=== PATIENT | female | born 1975 | race Hispanic/Latino ===

== ENCOUNTER → 2020-07-10 | Outpatient (CLI) | payer OTHER ==
[~2020-07-10] MED LIST: LOSARTAN POTAS100 MG PO
[2020-07-10 10:39] LABS: BASOPHILS # (AUTO) 0.1 (0.0-0.1); BASOPHILS % 1.1 % (0.0-1.0); EOSINOPHILS # (AUTO) 0.1 (0.0-0.4); EOSINOPHILS % 1.6 % (0.0-6.0); HEMATOCRIT 38.3 % (34.2-44.1); HEMOGLOBIN 12.5 g/dL (12.0-16.0); LYMPHOCYTES # (AUTO) 1.6 (1.0-3.2); LYMPHOCYTES % 29.1 % (18.0-39.1); MEAN CORPUSCULAR HEMOGLOBIN 28.4 pg (28-32); MEAN CORPUSCULAR HGB CONC 32.6 g/dL (31-35); MONOCYTES # (AUTO) 0.4 (0.2-0.8); MONOCYTES % 6.9 % (4.4-11.3); NEUTROPHILS # (AUTO) 3.4 (2.1-6.9); NEUTROPHILS % 60.9 % (38.7-80.0); PLATELET COUNT 210 x10e3/uL (140-360); RED CELL DISTRIBUTION WIDTH 13.3 % (11.7-14.4)
[2020-07-10 11:16] LABS: ALANINE AMINOTRANSFERASE 27 IU/L (0-55); ALBUMIN 3.7 g/dL (3.5-5.0); ALBUMIN/GLOBULIN RATIO 1.2 (0.8-2.0); ALKALINE PHOSPHATASE 96 IU/L (40-150); ANION GAP 13.5 mmol/L (8-16); BLOOD UREA NITROGEN 5 mg/dL (7-26); BUN/CREATININE RATIO 8 (6-25); CALCIUM 8.6 mg/dL (8.4-10.2); CARBON DIOXIDE 24 mmol/L (22-29); CHLORIDE 108 mmol/L (98-107); CREATININE, SERUM 0.63 mg/dL (0.57-1.11); EST GLOMERULAR FILTRATION RATE > 60 ML/MIN (60-); GLUCOSE 96 mg/dL (74-118); POTASSIUM 3.5 mmol/L (3.5-5.1); SODIUM 142 mmol/L (136-145)
== END | disposition home or self-care (01) ==
LOC: RAD 05:00 → OR 07-15 07:59 → EDSTATUS 07-15 10:00
PROVIDERS: ATTEND Obstetrics & Gynecology
DX: N92.0 Excessive and frequent menstruation with regular cycle (principal); Z01.810 Encounter for preprocedural cardiovascular examination; Z01.812 Encounter for preprocedural laboratory examination; Z11.59 Encounter for screening for other viral diseases; Z53.9 Procedure and treatment not carried out, unspecified reason
CPT/HCPCS: 36415; 80053; 84702; 85025; 86850; 86900; 93005; U0002

== ENCOUNTER 2020-08-19 10:52 | Observation (INO) | payer OTHER ==
[2020-08-14 11:04] LABS: BASOPHILS % 0.6 % (0.0-1.0); EOSINOPHILS # (AUTO) 0.1 (0.0-0.4); EOSINOPHILS % 0.9 % (0.0-6.0); HEMATOCRIT 41.1 % (34.2-44.1); HEMOGLOBIN 13.6 g/dL (12.0-16.0); LYMPHOCYTES # (AUTO) 1.9 (1.0-3.2); LYMPHOCYTES % 27.9 % (18.0-39.1); MEAN CORPUSCULAR HEMOGLOBIN 28.5 pg (28-32); MEAN CORPUSCULAR HGB CONC 33.1 g/dL (31-35); MEAN CORPUSCULAR VOLUME 86.2 fL (81-99); MONOCYTES # (AUTO) 0.6 (0.2-0.8); NEUTROPHILS # (AUTO) 4.3 (2.1-6.9); NEUTROPHILS % 62.3 % (38.7-80.0); PLATELET COUNT 218 x10e3/uL (140-360); RED BLOOD COUNT 4.77 x10e6/uL (3.6-5.1); RED CELL DISTRIBUTION WIDTH 12.6 % (11.7-14.4)
[2020-08-14 11:21] LABS: ALANINE AMINOTRANSFERASE 17 IU/L (0-55); ALBUMIN 4.3 g/dL (3.5-5.0); ALBUMIN/GLOBULIN RATIO 1.4 (0.8-2.0); ALKALINE PHOSPHATASE 97 IU/L (40-150); ANION GAP 13.9 mmol/L (8-16); BLOOD UREA NITROGEN 6 mg/dL (7-26); BUN/CREATININE RATIO 10 (6-25); CALCIUM 8.4 mg/dL (8.4-10.2); CARBON DIOXIDE 24 mmol/L (22-29); CHLORIDE 107 mmol/L (98-107); CREATININE, SERUM 0.62 mg/dL (0.57-1.11); EST GLOMERULAR FILTRATION RATE > 60 ML/MIN (60-); GLUCOSE 93 mg/dL (74-118); POTASSIUM 3.9 mmol/L (3.5-5.1); SODIUM 141 mmol/L (136-145)
[~2020-08-19] VITALS: Ht 157.5 cm; Wt 74.1 kg
[2020-08-19] MEDS ORDERED: ESTROGENS CONJUGATED VAGINAL CR 45 GM TUBE PV ONE (11:21)
[2020-08-19] MEDS ORDERED: LIDOCAINE 1% W/EPINEPHRINE 20 ML VIAL ONE (11:21)
[2020-08-19] MEDS ORDERED: ONDANSETRON HCL INJ 2MG/ML 2ML 2 MG/ML VIAL IV PRN (12:15)
[2020-08-19] MEDS ORDERED: CEFAZOLIN SOD 1 GM/NS 50ML 100 ML IV ONE (12:15)
[2020-08-19] MEDS ORDERED: PROMETHAZINE HCL (IM) 25 MG/ML VIAL IM PRN (12:15)
[2020-08-19] MEDS ORDERED: DOCUSATE SODIUM 100 MG CAP PO PRN (12:15)
[2020-08-19] MEDS ORDERED: MEPERIDINE HCL INJ 25 MG/ML VIAL IV PRN (12:15)
[2020-08-19] MEDS ORDERED: DIPHENHYDRAMINE HCL 25 MG CAP PO PRN (12:15)
[2020-08-19] MEDS ORDERED: PROPOFOL IV EMULSION 10 MG/ML 20 ML VIAL ONE (12:30)
[2020-08-19] MEDS ORDERED: NEOSTIGMINE 1 MG/ML 10ML VIAL ONE ×2 (12:30→13:25)
[2020-08-19] MEDS ORDERED: DESFLURANE 240 ML BTL INH ONE (12:30)
[2020-08-19] MEDS ORDERED: LIDOCAINE HCL 2% LOCAL INJ 5 ML SDV VIAL INJ ONE (12:30)
[2020-08-19] MEDS ORDERED: ROCURONIUM BROMIDE 10 MG/ML 5ML VIAL IV ONE (12:30)
[2020-08-19] MEDS ORDERED: DEXAMETHASONE SOD PHOS INJ 4 MG/ML VIAL ONE (12:30)
[2020-08-19] MEDS ORDERED: ONDANSETRON HCL INJ 2MG/ML 2ML 2 MG/ML VIAL ONE (12:30)
[2020-08-19] MEDS ORDERED: GLYCOPYRROLATE INJ 0.2 MG/ML VIAL ONE (12:30)
[2020-08-19] MEDS ORDERED: MIDAZOLAM HCL 2 MG/2 ML VIAL ONE (12:35)
[2020-08-19] MEDS ORDERED: FENTANYL CITRATE/PF 100MCG/2 ML INJ ONE (12:35)
[2020-08-19] MEDS ORDERED: ACETAMINOPHEN 1000 MG/100 ML 100 ML IV ONE (13:26)
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
--- OUTSIDE RECORDS SUMMARY | 2020-08-19 14:43 | XMS REPORT | Clinical Summary ---
Author Author [facility] Organization [facility] Address Unknown Phone Unavailable Care Team Providers Care Admitting Office Escort Name Role Phone PCP Unavailable Allergies Not on File Medications Not on file Active Problems Not on file Immunizations Name Administration Dates Next Due FLUCELVAX QUAD PF 08/01/2019, 08/03/2018 Social History Date Tobacco Use Types Packs/Day Years Used Never Assessed Sex Assigned at Date Recorded Not on file Last Filed Vital Signs Not on file Plan of Treatment Health Maintenance Due Date Last Done Comments CERVICAL CANCER SCREENING 1993 INFLUENZA VACCINE 06/21/2020 08/01/2019, 08/03/2018 Results Not on fileafter 08/19/2019 Advance Directives For more information, please contact: [phone] Patient Manager Of Medical Explanation Type Date Recorded Advance Directives, Living Will and Medical Power of Lab Technician
--- OUTSIDE RECORDS SUMMARY | 2020-08-19 14:43 | XMS REPORT | Continuity of Care Document ---
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 ElementQualifiersDate Rep orted Sexual History: . Are you currently sexually active? Ye s, Partner Preference: Heterosexual, Do you use a form of protection? Yes, What type? Vasectomy January 28, 2017 Tobacco Use: . Are you a: never smoker, Do you use a lternate forms of tobacco? No January 28, 2017 Use of recreational / street drugs? . Answer: No January 28, 2017 Smoke Exposure: . Second Hand Smoke Exposure: No January 28, 2017 Alcohol Screening: . Points: 0, Interpretation: Negative January 28, 2017 Do you have pets? . Status: No January 28, 2017 Marital Status: . January 28, 2017 Caffeine intake? . Status: Yes, What type: Coffee, How o ften? Daily January 28, 2017 Do you exercise? . Answer: No January 28, 2017 Do you drink alcohol? . Status: Yes, Type: Beer, How often? O nce per week January 28, 2017 01/28/2017 [facility] Family History Value Date S ource QualifierDescriptionCommentDate Reported Maternal Grandmother Comment not available Jul 01, 2016 Paternal Grandmother Comment not available Jul 01, 2016 Siblings Comment not available Jul 01, 2016 Maternal Grandfather Comment not available Jul 01, 2016 Children Comment not available Jul 01, 2016 Father alive Comment not available Jul 01, 2016 Paternal Grandfather Comment not available Jul 01, 2016 Mother alive Comment not available Jul 01, 2016 Other: Comment not available Jul 01, 2016 07/03/2016 [facility] Primary QualifierDescriptionCommentDate Reported Maternal Grandmother Comment not available June 18, 2016 Paternal Grandmother Comment not available June 18, 2016 Siblings Comment not available June 18, 2016 Maternal Grandfather Comment not available June 18, 2016 Children Comment not available June 18, 2016 Father alive Comment not available June 18, 2016 Paternal Grandfather Comment not available June 18, 2016 Mother alive Comment not available June 18, 2016 Other: Comment not available June 18, 2016 06/19/2016 [facility] Primary QualifierDescriptionCommentDate Reported Maternal Grandmother Comment not available April 09, 2016 Paternal Grandmother Comment not available April 09, 2016 Siblings Comment not available April 09, 2016 Maternal Grandfather Comment not available April 09, 2016 Children Comment not available April 09, 2016 Father alive Comment not available April 09, 2016 Paternal Grandfather Comment not available April 09, 2016 Mother alive Comment not available April 09, 2016 Other: Comment not available April 09, 2016 04/10/2016 [facility] Primary QualifierDescriptionCommentDate Reported Maternal Grandmother Comment not available Dec 08, 2015 Paternal Grandmother Comment not available Dec 08, 2015 Siblings Comment not available Dec 08, 2015 Maternal Grandfather Comment not available Dec 08, 2015 Children Comment not available Dec 08, 2015 Father alive Comment not available Dec 08, 2015 Paternal Grandfather Comment not available Dec 08, 2015 Mother alive Comment not available Dec 08, 2015 Other: Comment not available Dec 08, 2015 12/27/2015 [facility] Primary QualifierDescriptionCommentDate Reported Maternal Grandmother Comment not available Nov 28, 2015 Paternal Grandmother Comment not available Nov 28, 2015 Siblings Comment not available Nov 28, 2015 Maternal Grandfather Comment not available Nov 28, 2015 Children Comment not available Nov 28, 2015 Father alive Comment not available Nov 28, 2015 Paternal Grandfather Comment not available Nov 28, 2015 Mother alive Comment not available Nov 28, 2015 Other: Comment not available Nov 28, 2015 11/29/2015 [facility] Primary QualifierDescriptionCommentDate Reported Mother alive Comment not available Sep 13, 2014 Father alive Comment not available Sep 13, 2014 10/29/2014 [facility] Primary QualifierDescriptionCommentDate Reported Mother alive Comment not available Sep 13, 2014 Father alive Comment not available Sep 13, 2014 10/29/2014 [facility] Primary QualifierDescriptionCommentDate Reported Mother alive Comment not available Sep 13, 2014 Father alive Comment not available Sep 13, 2014 09/18/2014 [facility] Advance Directives No Data Provided for This Section Functional Status No Data Provided for This Section
[2020-08-19 15:17] VITALS: BP 150/83
--- NOTE | 2020-08-19 15:17 | NUR ---
RECEIVED PATIENT FROM PACU. PATIENT A/O X3, EVEN RESPIRATIONS ON RA. LUNG SOUNDS CLEAR. VSS. RIGHT AC 20 GAUGE IV PATENT. COLE IN PLACE WITH CLEAR PALE YELLOW URINE. VAGINAL PACKING IN PLACE. SCD's BILATERALLY. CALL LIGHT IN REACH WILL CONTINUE TO MONITOR.
[2020-08-19 16:01] VITALS: BP 150/83
[2020-08-19] MEDS: LACTATED RINGER'S 1,000 ML IV SCH ×2 (16:34→21:13)
--- NOTE | 2020-08-19 19:30 | NUR ---
RECEIVED PATIENT FROM [facility]. PATIENT A/O X3, EVEN RESPIRATIONS ON RA. VSS. RIGHT AC 20 GAUGE IV PATENT. COLE IN PLACE WITH CLEAR PALE YELLOW URINE. VAGINAL PACKING IN PLACE. SCD's BILATERALLY. CALL LIGHT IN REACH WILL CONTINUE TO MONITOR. COLE AND PACKING TO BE DISCONTINUED IN THE AM PER MD ORDERS
[2020-08-19 20:00] VITALS: BP 165/82
[2020-08-19 20:41] VITALS: BP 146/83
[2020-08-19] MEDS ORDERED: ZOLPIDEM TARTRATE 5 MG TAB PO PRN (21:00)
[2020-08-19] MEDS: HYDROCODONE/APAP 5MG-325MG TAB PO PRN (21:36)
[2020-08-20] VITALS (8 sets, daily range): BP systolic 113–173; BP diastolic 67–87
[2020-08-20] MEDS: LACTATED RINGER'S 1,000 ML IV SCH ×2 (03:18→12:15)
[2020-08-20] MEDS: HYDROCODONE/APAP 5MG-325MG TAB PO PRN ×2 (03:18→10:15)
[2020-08-20 04:47] LABS: BASOPHILS % 0.3 % (0.0-1.0); HEMATOCRIT 31.2 % (34.2-44.1); HEMOGLOBIN 10.4 g/dL (12.0-16.0); LYMPHOCYTES # (AUTO) 1.3 (1.0-3.2); LYMPHOCYTES % 10.5 % (18.0-39.1); MEAN CORPUSCULAR HEMOGLOBIN 28.4 pg (28-32); MEAN CORPUSCULAR HGB CONC 33.3 g/dL (31-35); MEAN CORPUSCULAR VOLUME 85.2 fL (81-99); MONOCYTES % 7.8 % (4.4-11.3); NEUTROPHILS % 80.8 % (38.7-80.0); PLATELET COUNT 191 x10e3/uL (140-360); RED BLOOD COUNT 3.66 x10e6/uL (3.6-5.1); RED CELL DISTRIBUTION WIDTH 12.2 % (11.7-14.4)
--- NOTE | 2020-08-20 07:00 | NUR ---
RECEIVED PATIENT RESTING IN BED NO S/S OF DISTRESS. BED LOW, WHEELS LOCKED, SIDE RAILS X2. CALL LIGHT IN REACH WILL CONTINUE TO MONITOR PATIENT.
--- NOTE | 2020-08-20 07:23 | NUR ---
SPOKE TO DR. NARENDRA ABARCA TO CONTINUE HOME MEDICATION [place]. NEW ORDERS IMPLEMENTED.
--- NOTE | 2020-08-20 08:45 | NUR ---
REMOVED PATIENTS COLE CATHETER. CATHETER TIP INTACT ON REMOVAL PATIENT DUE TO VOID. VAGINAL PACKING REMOVED. PATIENT TOLERATED WELL.
[2020-08-20] MEDS: LOSARTAN POTASSIUM 100 MG TAB PO SCH (08:54)
--- NOTE | 2020-08-20 10:00 | NUR ---
PATIENT HAS VOIDED SINCE COLE REMOVAL.
[2020-08-20] MEDS ORDERED: COLACE100 MG PO (14:28)
[2020-08-20] MEDS ORDERED: TYLENOL # 31 EA PO (14:28)
--- NOTE | 2020-08-20 15:00 | NUR ---
removed patients catheter tip intact and pressure dressing applied.
--- NOTE | 2020-08-20 15:30 | NUR ---
PATIENT DISCHARGED FROM FACILITY IN STABLE CONDITION. PATIENT GATHERED ALL PERSONAL BELONGINGS, DISCHARGE INSTRUCTIONS AND FOLLOW UP INFORMATION. NO S/S OF DISTRESS LEAVING FACILITY.
--- NOTE | 2020-08-20 16:57 | Operative Report ---
DATE OF PROCEDURE: SURGEON: Amanda Peterson MD PREOPERATIVE DIAGNOSIS: Abnormal uterine bleeding. POSTOPERATIVE DIAGNOSIS: Abnormal uterine bleeding. PROCEDURE: Vaginal hysterectomy. COLLECTION DEVELOPMENT LIBRARIAN: Dr. Renetta Higginbotham. COMPLICATIONS: None. ESTIMATED BLOOD LOSS: 20 mL. DESCRIPTION OF PROCEDURE: The patient was taken to the OR. General anesthesia was induced. She was prepped and draped in normal sterile fashion, placed in dorsal lithotomy position. After examination under anesthesia some vaginal tissue was injected with Marcaine with epinephrine 0.25 about 20 mL around the cervix. A circumferential vaginal skin incision was then made with a scalpel and the vagina was dissected off the cervix using both sharp and blunt dissection with the curved Smith scissors and gentle sweeps of latex wrapped on the index finger. The pouch of Scott was opened with Metzenbaum scissors and weighted speculum was advanced in the pouch of Scott using the curved zeppelin clamps, the uterosacral ligaments were clamped, cut and pedicle secured with transfixion suture of Vicryl 0 using LigaSure. Uterine vessels were ligated and cauterized and cut. The same was repeated on the other side. Following this, the uterine fundus was brought outside the wound with a finger around the uterine fundus. Anterior pouch was opened with Metzenbaum scissors and the apex of the broad ligament was clamped on each side using the curved zeppelin clamp. Uterus was freed and sent to pathology. The pedicles were secured with transfixion suture of Vicryl 0. Hemostasis was found to be adequate. Vaginal vault was closed with interlocking stitches of Vicryl 0 continuous stitch. The patient tolerated the procedure well. Laps and needle counts were correct x3 at the end of procedure. Amanda Peterson MD DD/MODL /[id number]
== END 2020-08-20 13:30 | disposition home or self-care (01) ==
LOC: OR 10:52 → PACU V 12:18 → MED/SURG 15:20
PROVIDERS: ADMIT Obstetrics & Gynecology; ATTEND Obstetrics & Gynecology
DX: N93.9 Abnormal uterine and vaginal bleeding, unspecified (principal); Z01.812 Encounter for preprocedural laboratory examination; Z11.59 Encounter for screening for other viral diseases; Z88.8 Allergy status to other drugs, medicaments and biological substances; M19.90 Unspecified osteoarthritis, unspecified site; I10 Essential (primary) hypertension; K58.9 Irritable bowel syndrome, unspecified
CPT/HCPCS: 36415 ×2; 58260; 80053; 81025; 85025 ×2; 86850; 86900; 88307; G0378 ×2; J0131; J0690; J1100; J2001; J2175; J2250; J2405; J2704; J2710; J3010; J7121 ×2; U0002